=== PATIENT | male | born 1960 | race Two or more races ===

== ENCOUNTER 2019-11-17 06:09 | Day surgery (SDC) | payer OTHER ==
--- NOTE | 2019-11-16 22:13 | Pre-Procedure Note/Attestation ---
Pre-Procedure Note/Attestation Complete Prior to Procedure Planned Procedure: right - Removal of cataract and placement of intraocular lens, right eye Procedure Narrative: Removal of cataract and placement of intraocular lens, right eye Indications for Procedure Pre-Operative Diagnosis: Cataract, senile, right eye Attestation I attest that I discussed the nature of the procedure; its benefits; risks and complications; and alternatives (and the risks and benefits of such alternatives ), prior to the procedure, with the patient (or the patient's legal patient care representative). I attest that, if there was a reasonable possibility of needing a blood transfusion, the patient (or the patient's legal patient care representative) was given the [place] [employer] standardized written summary, pursuant to the [place] Blood Safety Act ([place] Health and Safety Code # 1645, as amended). I attest that I re-evaluated the patient just prior to the surgery and that there has been no change in the patient's H&P, except as documented below: Beto Del oRsario MD Nov 16, 2019 22:13
[2019-11-17] VITALS (8 sets, daily range): BP systolic 118–144; BP diastolic 68–81
[~2019-11-17] VITALS: Ht 193 cm; Wt 145.1 kg
[~2019-11-17 06:09] MED LIST: LOSARTAN POTAS100 MG ORAL; SOTALOL80 M1 ORAL
[2019-11-17] MEDS ORDERED: Tobradex Opth Susp 2.5ml ONE (06:11)
[2019-11-17] MEDS ORDERED: Akten 3.5% 1ml Btl ONE (06:11)
[2019-11-17] MEDS ORDERED: Phenylephrine 10% Opth Soln 5ml ONE (06:11)
[2019-11-17] MEDS ORDERED: Cyclopentolate 1% Opth Sol 2ml ONE (06:11)
[2019-11-17] MEDS ORDERED: Tropicamide 1% Opth 15ml Soln ONE (06:12)
[2019-11-17] MEDS ORDERED: Vigamox Opth Soln 3ml ONE (06:12)
[2019-11-17] MEDS: Phenylephrine 10% Opth Soln 5ml RIGHT EYE SCH ×3 (06:32→06:44)
[2019-11-17] MEDS: Tropicamide 1% Opth 15ml Soln RIGHT EYE SCH ×3 (06:32→06:44)
[2019-11-17] MEDS: Vigamox Opth Soln 3ml RIGHT EYE SCH ×3 (06:33→06:44)
[2019-11-17] MEDS: Akten 3.5% 1ml Btl RIGHT EYE SCH ×3 (06:33→06:44)
[2019-11-17] MEDS: Cyclopentolate 1% Opth Sol 2ml RIGHT EYE SCH ×3 (06:33→06:44)
[2019-11-17] MEDS: Tobradex Opth Susp 2.5ml RIGHT EYE SCH ×3 (06:33→06:44)
[2019-11-17 06:51] LABS: BASOPHILS % (AUTO) 1.1 % (0.0-2.0); EOSINOPHILS % (AUTO) 3.6 % (0.0-3.0); HEMATOCRIT 42.6 % (42.0-52.0); HEMOGLOBIN 15.1 G/DL (14.2-18.0); LYMPHOCYTES % (AUTO) 43.4 % (20.0-45.0); MEAN CORPUSCULAR VOLUME 93 FL (80-99); MONOCYTES % (AUTO) 7.2 % (1.0-10.0); NEUTROPHILS % (AUTO) 44.7 % (45.0-75.0); PLATELET COUNT 207 K/UL (150-450); RED BLOOD COUNT 4.59 M/UL (4.70-6.10); RED CELL DISTRIBUTION WIDTH 11.1 % (11.6-14.8); WHITE BLOOD COUNT 7.4 K/UL (4.8-10.8)
[2019-11-17] MEDS ORDERED: Lidocaine 1% MPF 10mg/ml 5ml ONE (06:55)
[2019-11-17] MEDS ORDERED: Polysporin Opth Oint 3.5gm ONE (06:55)
[2019-11-17] MEDS ORDERED: prednisoLONE acetate 1% Opth Susp 1ml ONE (06:55)
[2019-11-17] MEDS ORDERED: Carbachol 0.01% Op Soln 1.5ml vial ONE (06:55)
[2019-11-17] MEDS ORDERED: Lidocaine 4% Amp 5ml ONE (06:55)
[2019-11-17] MEDS ORDERED: timoloL maleate 0.5% Op Soln 2.5ml ONE (06:55)
[2019-11-17] MEDS ORDERED: EPINEPHrine 1mg/1ml Amp ONE (06:55)
[2019-11-17] MEDS ORDERED: Fluorescein Strips ONE (06:55)
[2019-11-17] MEDS ORDERED: Povidone-Iodine 5% opth solution ONE (06:56)
[2019-11-17] MEDS ORDERED: BSS 15ml BTL ONE (06:56)
[2019-11-17] MEDS ORDERED: Bupivacaine 0.75% 30ml vial INJ ONE (06:56)
[2019-11-17] MEDS ORDERED: Tetracaine 0.5% Opth 4ml Soln ONE (06:56)
[2019-11-17] MEDS ORDERED: BSS 500ml btl ONE (06:56)
[2019-11-17] MEDS ORDERED: Sodium Hyaluronate 10 mg/ml 0.85ml ONE (06:57)
[2019-11-17 07:05] LABS: ANION GAP 10 mmol/L (5-15); BLOOD UREA NITROGEN 14 mg/dL (7-18); CALCIUM 8.7 MG/DL (8.5-10.1); CARBON DIOXIDE 24 MMOL/L (21-32); CHLORIDE 105 MMOL/L (98-107); CREATININE 1.3 MG/DL (0.55-1.30); POTASSIUM 4.3 MMOL/L (3.5-5.1); SODIUM 139 MMOL/L (136-145)
[2019-11-17] MEDS ORDERED: fentaNYL 100 mcg/2 mL IV ONE (07:13)
[2019-11-17] MEDS ORDERED: Midazolam 2mg/2ml Inj ONE (07:13)
[2019-11-17] MEDS ORDERED: LR 1000ml ONE (07:30)
[2019-11-17] MEDS ORDERED: NS Irrig 1000ml ONE (07:30)
[2019-11-17] MEDS ORDERED: Sterile Water Irrig 1000ml IRRIG ONE (07:30)
--- NOTE | 2019-11-17 07:57 | Anethesia Preoperative Eval ---
Anesthesia Pre-op PMH/ROS General Date of Evaluation: Nov 17, 2019 Time of Evaluation: 07:15 Anesthesiologist: Avni ASA Score: ASA 3 Mallampati Score Class I : Soft palate, uvula, fauces, pillars visible Class II: Soft palate, uvula, fauces visible Class III: Soft palate, base of uvula visible Class IV: Only hard plate visible Mallampati Classification: Class III Surgeon: Carin Diagnosis: R eye cataract Surgical Procedure: Cataract extraction Anesthesia History: none Family History: no anesthesia problems Allergies: Coded Allergies: No Known Allergies (Unverified , 11/12/19) Medications: see eMAR Patient NPO?: Yes Past Medical History Cardiovascular: Reports: HTN, arrhythmia - h/o A fib; Denies: CAD, HI, valve dz, other Pulmonary: Reports: BASIL; Denies: asthma, COPD, other Gastrointestinal/Genitourinary: Reports: GERD, CRI - Elevated Cr.; Denies: ESRD, other Neurologic/Psychiatric: Denies: dementia, CVA, depression/anxiety, TIA, other Endocrine: Denies: DM, hypothyroidism, steroids, other HEENT: Reports: cataract (L), cataract (R); Denies: glaucoma, ASA'CARSARMIUT (L), ASA'CARSARMIUT (R), other Hematology/Immune: Denies: anemia, DVT, bleeding disorder, other Musculoskeletal/Integumentary: Denies: OA, RA, DJD, DDD, edema, other Other: obesity PMH Narrative: as above PSxH Narrative: Gastric bypass, cholecystectomy L eye cataract Anesthesia Pre-op Phys. Exam Physician Exam Last Vital Signs Date Time Temp Pulse Resp B/P (MAP) Pulse Ox O2 Delivery O2 Flow Rate FiO2 11/17/19 06:31 97.9 59 20 135/81 97 Room Air Constitutional: NAD Neurologic: CN 2-12 intact Cardiovascular: RRR, no M/R/G Respiratory: CTA Gastrointestinal: other - obsity Airway Exam Mallampati Score: Class III MO: full Neck: short ROM: full Teeth: intact Dentures: no upper, no lower Anesthesia Pre-op A/P Labs Hematology Test 11/17/19 06:10 White Blood Count 7.4 K/UL (4.8-10.8) Red Blood Count 4.59 M/UL (4.70-6.10) L Hemoglobin 15.1 G/DL (14.2-18.0) Hematocrit 42.6 % (42.0-52.0) Mean Corpuscular Volume 93 FL (80-99) Mean Corpuscular Hemoglobin 32.9 PG (27.0-31.0) H Mean Corpuscular Hemoglobin Concent 35.4 G/DL (32.0-36.0) Red Cell Distribution Width 11.1 % (11.6-14.8) L Platelet Count 207 K/UL (150-450) Mean Platelet Volume 5.8 FL (6.5-10.1) L Neutrophils (%) (Auto) 44.7 % (45.0-75.0) L Lymphocytes (%) (Auto) 43.4 % (20.0-45.0) Monocytes (%) (Auto) 7.2 % (1.0-10.0) Eosinophils (%) (Auto) 3.6 % (0.0-3.0) H Basophils (%) (Auto) 1.1 % (0.0-2.0) Chemistry Test 11/17/19 06:10 Sodium Level 139 MMOL/L (136-145) Potassium Level 4.3 MMOL/L (3.5-5.1) Chloride Level 105 MMOL/L (98-107) Carbon Dioxide Level 24 MMOL/L (21-32) Anion Gap 10 mmol/L (5-15) Blood Urea Nitrogen 14 mg/dL (7-18) Creatinine 1.3 MG/DL (0.55-1.30) Estimat Glomerular Filtration Rate 56.9 mL/min (>60) Glucose Level 103 MG/DL (74-106) Calcium Level 8.7 MG/DL (8.5-10.1) Studies Pre-op Studies: EKG - SB Risk Assessment & Plan Assessment: ASA 3 Plan: MAC Status Change Before Surgery: No Pre-Antibiotics Drug: none William Holly MD Nov 17, 2019 07:57
[2019-11-17] MEDS ORDERED: LR 1000ml 1,000 ML IVLG SCH (08:03)
[2019-11-17] MEDS ORDERED: fentaNYL 100 mcg/2 mL IV PRN (08:03)
--- NOTE | 2019-11-17 08:20 | Discharge Instructions ---
Discharge Instructions Discharge Instructions Follow Up Orders Wear eye shield at all times except to place eye drops Continue preop eye drops Followup tomorrow Return to Work/School on: Nov 17, 2019 For Congestive Heart Failure Reminder Report to your physician any weight gain of 5 pounds or more in one week. Beto Del Rosario MD Nov 17, 2019 08:20
--- NOTE | 2019-11-17 08:22 | Brief Operative Note ---
Immediate Post Operative Note Operative Note Pre-op Diagnosis: Cataract, senile, right eye Procedure: Phaco PCIOL OD Post-op Diagnosis: same as pre-op Surgeon: Nash Del Rosario MD MS Batter Scaler: none Additional Surgeons: none Anesthesiologist: Dr Holly Anesthesia: local, MAC Specimen: none Complications: none Fluids: see chart Estimated Blood Loss: minimal Implant(s) used?: Yes - Chanel [id number] 26.5 Beto Del Rosario MD Nov 17, 2019 08:22
--- NOTE | 2019-11-17 08:24 | Immediate Post-Op Evaluation ---
Immediate Post-Op Evalulation Immediate Post-Op Evalulation Procedure: R eye cataract extraction with IOL Date of Evaluation: Nov 17, 2019 Time of Evaluation: 08:23 IV Fluids: 200 Blood Products: none Estimated Blood Loss: none Urinary Output: none Blood Pressure Systolic: 136 Blood Pressure Diastolic: 78 Pulse Rate: 62 Respiratory Rate: 16 O2 Sat by Pulse Oximetry: 99 Temperature (Fahrenheit): 98.1 Pain Score (1-10): 1 Nausea: No Vomiting: No Complications none Patient Status: awake, patent, none Hydration Status: adequate William Holly MD Nov 17, 2019 08:24
--- NOTE | 2019-11-17 09:52 | 48 Hour Post Anesthesia Eval ---
Post Anesthesia Evaluation Procedure: R eye cataract extraction with IOL Date of Evaluation: Nov 17, 2019 Time of Evaluation: 09:51 Blood Pressure Systolic: 118 0: 68 Pulse Rate: 58 Respiratory Rate: 16 Temperature (Fahrenheit): 97.6 O2 Sat by Pulse Oximetry: 98 Airway: patent Nausea: No Vomiting: No Pain Intensity: 1 Hydration Status: adequate Cardiopulmonary Status: stable Mental Status/LOC: patient returned to baseline Follow-up Care/Observations: n/a Post-Anesthesia Complications: none Follow-up care needed: ready to discharge William Holly MD Nov 17, 2019 09:52
--- NOTE | 2019-11-23 16:30 | Operative Note - Dictated ---
DATE OF OPERATION: 11/17/2019 SURGEON: Beto Del Rosario MD. MACHINE REPAIR PERSON SURGEON: None. ANESTHESIOLOGIST: William Holly MD. ANESTHESIA: Local/standby/monitored anesthesia care. PREOPERATIVE DIAGNOSIS: Cataract, senile, right eye. POSTOPERATIVE DIAGNOSIS: Cataract, senile, right eye. PROCEDURE: 1. Phacoemulsification of cataract, right eye. 2. Placement of posterior chamber intraocular lens, right eye. SPECIMENS: None. COMPLICATIONS: None. INDICATIONS FOR SURGERY: The patient has had the painless progressive decrease in visual acuity in the right eye secondary to cataract. The patient understands the risks of surgery include infection, bleeding, need for further surgery, loss of vision, no improvement in vision, loss of the eye, loss of life, glaucoma, retinal detachment, understands these risks and elects to proceed with surgery. FINDINGS: The patient had a +2 to 3 anterior subcapsular cataract that was just central as well as +1 to 2 nuclear sclerotic cataract. The patient had 16-cut RK in the right eye. OPERATIVE NOTE: After informed consent was obtained, the patient was brought into the operating room, placed in supine position. Cardiac and respiratory monitors were attached. A time-out was performed and all criteria were met and everyone in the room agreed. The right eye was then draped and prepped in sterile manner for ocular surgery. A lid speculum was placed in the eye. A 1% lidocaine preservative-free was injected at the approximate 9 o'clock limbus. A conjunctiva peritomy from approximately 8:30 to 9:30 was made and dissected posteriorly. Hemostasis was maintained with bipolar cautery. A 2.6 mm limbal incision was made and centered at approximately 9 o'clock and dissected anteriorly. This was done approximately 1 mm posterior limbus because of the RK wounds. The dissection anteriorly was tried to be in between the RK wounds. A paracentesis was made at approximately 12 o'clock in between the RK wounds and Shugarcaine was injected into the anterior chamber followed by Healon. The anterior chamber was then entered using a 2.6 mm keratome through the limbal incision. This was going fairly deep in order to maintain the architecture and stability of the RK wounds. An anterior capsulorrhexis was then performed. Hydrodissection and hydrodelineation of the lens was then performed. The lens was then phacoemulsified using divide and conquer four-quadrant technique. Residual cortical material was then aspirated. The lens was taken from its package, placed into the cartridge and the tip of the cartridge was placed through the limbal incision. Healon had been previously injected into the anterior chamber and capsular bag and the lens was then injected into the capsular bag and centered with a Sinskey hook. Healon was then aspirated from the anterior chamber and capsular bag. One 10-0 nylon interrupted suture was then placed through the limbal incision. The knot was rotated and buried. Care was taken during the entire procedure not to touch the endothelium. The wounds were checked and found to be watertight. All the radial keratotomy wounds remained intact. After the conjunctiva was closed with forceps cautery, the lens was inspected and both haptics were in the bag as well as the optic and it was centered along the 9 o'clock to 3 o' clock meridian. The lid speculum and drapes were removed from the eye and drops of Pred Forte and moxifloxacin were applied to the eye followed by Maxitrol ointment and a shield. The patient tolerated the procedure well and left the operating room awake, alert, and in stable condition. Beto Del Rosario M.D. DR: LAINE JOB#: [id number] CC:
== END 2019-11-17 09:15 | disposition home or self-care (01) ==
LOC: SUR 06:09
DX: H25.031 Anterior subcapsular polar age-related cataract, right eye (principal); H25.11 Age-related nuclear cataract, right eye; I10 Essential (primary) hypertension; G47.33 Obstructive sleep apnea (adult) (pediatric); K21.9 Gastro-esophageal reflux disease without esophagitis; E66.9 Obesity, unspecified; Z98.84 Bariatric surgery status; Z90.49 Acquired absence of other specified parts of digestive tract; Z68.39 Body mass index [BMI] 39.0-39.9, adult
CPT/HCPCS: 36415; 66984; 80048; 85025; 93005; 94003; J0171; J1100; J2250; J2704; J3010; J7120; V2632; 94150